=== PATIENT | female | born 1970 | race Hispanic/Latino ===

== ENCOUNTER 2019-02-23 10:32 | Outpatient (CLI) | payer OTHER ==
--- NOTE | 2019-02-23 10:52 | MMO ---
Bilateral MAMMO Bilat Diag [facility]. CLINICAL HISTORY: Patient is 49 years old and is seen for diagnostic exam and lump or thickening in the right breast. The patient has the following family history of breast cancer: paternal aunt and cousin female, Paternal. The patient has no personal history of cancer. The patient has a history of right Ultrasound Guided Core Biopsy in 2017 - benign and right Cyst Aspiration in 2016 - benign. VIEWS: The views performed were: bilateral craniocaudal with tomosynthesis; bilateral mediolateral oblique with tomosynthesis; and bilateral mediolateral. FILMS COMPARED: The present examination has been compared to prior imaging studies performed at [facility] on 06/12/2015, 12/30/2016, 12/31/2016 and 08/25/2017, at [facility] on 02/23/2019, and at [facility] on 06/07/2014 and 06/08/2014. MAMMOGRAM FINDINGS: The breasts are heterogeneously dense, which could obscure a lesion on mammography. Finding 1: There are two biopsy clips seen in the right breast. Finding 2: There are no mammographic or sonographic abnormalities in the area of palpable concern. The patient is referred back to her clinician. Negative imaging findings should not preclude biopsy if clinical findings are suspicious. In the left breast, there are no suspicious masses, calcifications or areas of architectural distortion. IMPRESSION: FINDING 2: THERE ARE NO MAMMOGRAPHIC ABNORMALITIES IN THE AREA OF PALPABLE CONCERN. THE PATIENT IS REFERRED BACK TO HER CLINICIAN. NEGATIVE IMAGING FINDINGS SHOULD NOT PRECLUDE BIOPSY IF CLINICAL FINDINGS ARE SUSPICIOUS. A ROUTINE FOLLOW-UP MAMMOGRAM IN 1 YEAR IS RECOMMENDED. ANY DECISION TO BIOPSY SHOULD BE BASED ON CLINICAL ASSESSMENT. THE RESULTS OF THIS EXAM WERE SENT TO THE PATIENT. ACR BI-RADS Category 2 - Benign finding MAMMOGRAPHY NOTE: 1. A negative mammogram report should not delay a biopsy if a dominant of clinically suspicious mass is present. 2. Approximately 10% to 15% of breast cancers are not detected by mammography. 3. Adenosis and dense breasts may obscure an underlying neoplasm.
--- NOTE | 2019-02-23 11:24 | ULT ---
LIMITED RIGHT BREAST ULTRASOUND: Date: 02-23-19 Provided Clinical History: Right breast palpable abnormality. FINDINGS: Limited sonographic interrogation was performed at the 9 and 10 o'clock positions of the right breast in the regions of palpable concern. A 3 mm simple cyst is seen at the 9 o'clock position. The sonogr aphic appearance of the breast parenchyma at the 10 o'clock position is normal. IMPRESSION: BIRADS category 2 - benign findings. No mammographic or sonographic abnormalities to correspond with the reported palpable abnormality. Negative imaging findings should not preclude further evaluation o f a clinically suspicious area. The patient was referred by to her clinician. POS: OFF
== END 2019-02-23 10:33 | disposition home or self-care (01) ==
LOC: BICMAMMO 10:32
PROVIDERS: ATTEND Obstetrics & Gynecology
DX: Z12.31 Encounter for screening mammogram for malignant neoplasm of breast (principal); Z80.3 Family history of malignant neoplasm of breast
CPT/HCPCS: 77066; G0279

== ENCOUNTER 2019-04-06 12:51 | Outpatient (CLI) | payer OTHER ==
--- NOTE | 2019-04-06 13:59 | MRI ---
EXAM: MRI lumbar spine without contrast HISTORY: Lumbar radiculopathy and back pain for 10 years COMPARISON: 04/27/2016 TECHNIQUE: Multiple planar multisequence MR images were obtained of the lumbar spine without contrast . FINDINGS: The vertebral bodies and intervertebral discs demonstrate normal height and alignment without fractur e or subluxation. There is desiccation of the L5/S1 intervertebral disc. There is a cyst/follicle in the left ovary measuring 3.5 cm in size. The prevertebral and paraspinal soft tissues are otherwise unremarkable. No marrow signal abnormality is present. The conus medullaris terminates normally at T12/L1. T12/L1: No significant posterior bulge or protrusion. No posterior facet arthrosis. No central mark l stenosis. No neural foraminal stenosis L1/2: No significant posterior bulge or protrusion. No posterior facet arthrosis. No central canal stenosis. No neural foraminal stenosis L2/3: No significant posterior bulge or protrusion. No posterior facet arthrosis. No central canal stenosis. No neural foraminal stenosis L3/4: No significant posterior bulge or protrusion. No posterior facet arthrosis. No central canal stenosis. No neural foraminal stenosis L4/5: No significant posterior bulge or protrusion. No posterior facet arthrosis. No central canal stenosis. No neural foraminal stenosis L5/S1: There is a mild generalized concentric disc bulge. No posterior facet arthrosis. No central canal stenosis. Mild bilateral neural foraminal stenosis IMPRESSION: Mild stable degenerative changes at L5/S1.
== END 2019-04-06 12:52 | disposition home or self-care (01) ==
LOC: BICMRI 12:51
PROVIDERS: ATTEND Nurse Practitioner Family
DX: M47.26 Other spondylosis with radiculopathy, lumbar region (principal); M47.27 Other spondylosis with radiculopathy, lumbosacral region
CPT/HCPCS: 72148

== ENCOUNTER 2019-12-27 15:06 | Outpatient (CLI) | payer OTHER ==
--- NOTE | 2019-12-27 16:54 | MRI ---
MRI lumbar spine noncontrast HISTORY: Low back pain. Bilateral radiculopathy. FINDINGS: Conus medullaris has normal appearance. Vertebral body heights and alignment are maintained . Bone marrow signal within normal limits. T12-L1, L1-2, L2-3, L3-4: Mild osteophytosis of the facets. Central canal and neural foramina are pat ent. L4-5: Desiccation of the disc. Mild disc space narrowing. Minimal posterior disc bulge. Fluid within each facet with osseous hypertrophy. Thecal sac is patent. Moderate right and mild to moderate left foraminal stenoses. L5-S1: New postoperative findings with anterior fixation and interbody hardware. Thecal sac is patent . Osteophytosis of the facets. Neural foramina are patent. IMPRESSION: Interval postoperative changes of the lumbosacral junction. Degenerative changes and Foraminal stenoses at the L4-5 level are stable.
== END 2019-12-27 15:07 | disposition home or self-care (01) ==
LOC: BICMRI 15:06
PROVIDERS: ATTEND Family Medicine
DX: R20.0 Anesthesia of skin (principal); M47.816 Spondylosis without myelopathy or radiculopathy, lumbar region; M48.061 Spinal stenosis, lumbar region without neurogenic claudication; Z98.890 Other specified postprocedural states
CPT/HCPCS: 72148

== ENCOUNTER 2025-09-28 08:03 | Outpatient (CLI) | payer BC | END 2025-09-28 08:04 | disposition home or self-care (01) | LOC: ULT 08:03 | PROVIDERS: ATTEND Family Medicine | DX: N39.0 Urinary tract infection, site not specified (principal) | CPT/HCPCS: 76700; 76856 ==